=== PATIENT | female | born 2005 | race Two or more races ===

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

== ENCOUNTER 2024-09-11 22:36 | Emergency (ER) | payer OTHER ==
[~2024-09-11] VITALS: Ht 160 cm; Wt 99.8 kg
[2024-09-12] MEDS ORDERED: ACETAMINOPHEN 500 MG GEL..CAP PO STA (01:58)
[2024-09-12] MEDS ORDERED: KETOROLAC TROMETHAMINE 60 MG VIAL IM ONE (02:00)
[2024-09-12 02:17] LABS: BASO % 0.5 % (0.1-1.2); EOS # 0.05 (0.04-0.54); EOS % 0.4 % (0.7-7.0); HEMATOCRIT 39.9 % (34.1-44.9); HEMOGLOBIN 13.6 g/dL (11.2-15.7); LYMPH # 5.33 (1.18-3.74); LYMPH % 41.9 % (19.3-53.1); MEAN CORPUSCULAR HEMOGLOBIN 28.2 pg (25.6-32.2); MONO # 0.53 (0.24-0.82); MONO % 4.2 % (4.7-12.5); NEUT # 6.72 (1.56-6.13); NEUT % 52.8 % (34.0-71.1); PLATELET COUNT 303 K/uL (163-369); RED BLOOD COUNT 4.82 M/uL (3.93-5.22)
== END 2024-09-12 03:29 | disposition home or self-care (01) ==
LOC: EMR PED 23:04 → ER 23:04 → EMR PED 09-12 03:29
DX: N94.3 Premenstrual tension syndrome (principal); R10.2 Pelvic and perineal pain; R10.9 Unspecified abdominal pain